=== PATIENT | male | born 1945 | race Caucasian/White ===

== ENCOUNTER 2017-06-06 17:48 | Emergency (ER) | payer MEDICARE, OTHER ==
[2017-06-06 18:12] VITALS: BP 134/83
--- NOTE | 2017-06-06 18:31 | EDM.PDOC ---
ED HPI GENERAL MEDICAL PROBLEM - General Chief Complaint: Lower Extremity Injury/Pain Stated Complaint: L KNEE INJURY HIKING Time Seen by Provider: 06/06/17 18:21 Source of Information: Reports: Patient History Limitations: Reports: No Limitations - History of Present Illness INITIAL COMMENTS - FREE TEXT/NARRATIVE: Patient is a 71-year-old male who presents ED complaining of left knee pain. Patient was hiking at the [facility]. He was walking up some man- made stairs and lost his balance. States he stepped back and hyperextended his left knee. Experience sudden onset of severe pain to the posterior aspect of the knee. Pain is localized. Had difficulty with weightbearing that has increased since admission to the ED. No prior injury to the affected leg. Minimal swelling upon admission to the ED. He has no pain at rest just with weightbearing. No numbness or tingling present. He has not taken anything for the discomfort. Denies any additional complaints. Left Knee Pain Score (Numeric/FACES): 2 - Related Data Allergies Allergy/AdvReac Type Severity Reaction Status Date / Time formaldehyde Allergy Rash Verified 06/06/17 18:08 Past Medical History Cardiovascular History: Reports: High Cholesterol, Hypertension Social & Family History - Tobacco Use Smoking Status *Q: Never Smoker - Recreational Drug Use Recreational Drug Use: No Review of Systems - Review of Systems Review Of Systems: ROS reveals no pertinent complaints other than HPI. ED EXAM, GENERAL - Physical Exam Exam: See Below Exam Limited By: No Limitations General Appearance: Alert, WD/WN, No Apparent Distress Ears: Hearing Grossly Normal Nose: Normal Inspection Throat/Mouth: Normal Voice, No Airway Compromise Neck: Normal Inspection, Supple Respiratory/Chest: No Respiratory Distress, Lungs Clear, Normal Breath Sounds Cardiovascular: Normal Peripheral Pulses, Regular Rate, Rhythm Extremities: Other (Minimal if no swelling to the left anterior knee. Patient has full active and passive range of motion. With provocative testing specifically the anterior drawer test patient had significant monitored discomfort. No pain with the posterior drawer test or with valgus/varus. No findings concerning for meniscus tear. No joint line discomfort. Knee was freely movable with no crepitus or pain with palpation.) Neurological: Alert, Oriented, CN II-XII Intact, Normal Cognition, No Motor/ Sensory Deficits Psychiatric: Normal Affect, Normal Mood Course - Vital Signs Last Recorded V/S: Last Vital Signs Temp 98.5 F 06/06/17 18:08 Pulse 79 06/06/17 18:08 Resp BP 134/83 06/06/17 18:08 Pulse Ox 97 06/06/17 18:08 - Orders/Labs/Meds Orders: Active Orders 24 hr Category Date Time Status Knee Min 4V Lt [CR] Stat Exams 06/06/17 18:31 Taken DME for Discharge [COMM] Stat Oth 06/06/17 19:25 Ordered - Re-Assessments/Exams Free Text/Narrative Re-Assessment/Exam: X-ray of the left knee was obtained revealing no acute bony abnormalities. No avulsion fractures indicating possible tear of in a dissociative ligaments. Testing did reveal anterior drawer test was positive for pain with no joint like to sleep. Findings are suggestive May patient distress and/hyperextended his knee. He has minimal discomfort with active and passive range of motion. Thus will have a Yoel wrap applied and crutches ordered for the patient on discharge. Discharge instructions as documented. Departure - Departure Time of Disposition: 19:30 Disposition: Home, Self-Care 01 Condition: Good Clinical Impression: Sprain of knee Hyperextension injury of knee Qualifiers: Encounter type: initial encounter Laterality: left Qualified Code(s): S89.82XA - Other specified injuries of left lower leg, initial encounter - Discharge Information Instructions: Crutch Use, [id number], Knee Sprain, [id number] Referrals: PCP,Not In Area [Primary Care Provider] - Forms: ED Department Discharge Additional Instructions: As discussed believe you have knee sprain. Treatment is symptomatic care including Yoel wrap to the affected knee with crutches for ambulation. Do this for the next 3-5 days. Advance weight as tolerated thereafter. Elevate when able to reduce any swelling or pain. Ice to affected area 3 times daily, 20 minutes in duration, do not place ice directly on the skin. Take ibuprofen and Tylenol in alternating fashion for pain. See a orthopedic surgeon upon returning home for further evaluation. Return to the ED for any new or worsening symptoms. - My Orders Last 24 Hours: My Active Orders 06/06/17 18:31 Knee Min 4V Lt [CR] Stat 06/06/17 19:25 DME for Discharge [COMM] Stat - Assessment/Plan Last 24 Hours: My Active Orders 06/06/17 18:31 Knee Min 4V Lt [CR] Stat 06/06/17 19:25 DME for Discharge [COMM] Stat
--- NOTE | 2017-06-07 08:33 | CR ---
Left knee: Four views of the left knee were obtained. Joint effusion is identified. Medial joint is minimally narrowed. Lateral joint space is preserved. No acute fracture or other bony abnormality is identified. Impression: 1. Mild medial joint space narrowing. 2. Joint effusion. Diagnostic code #2
== END 2017-06-06 19:50 | disposition home or self-care (01) ==
LOC: JD.ED 17:48
DX: S83.92XA Sprain of unspecified site of left knee, initial encounter (principal); I10 Essential (primary) hypertension; E78.00 Pure hypercholesterolemia, unspecified; Z88.8 Allergy status to other drugs, medicaments and biological substances; X50.9XXA Other and unspecified overexertion or strenuous movements or postures, initial encounter; Y93.01 Activity, walking, marching and hiking; Y92.830 Public park as the place of occurrence of the external cause
CPT/HCPCS: 73564-26-LT; 73564-LT; 99283; 99284